=== PATIENT | male | born 2000 | race Caucasian/White ===

== ENCOUNTER 2023-10-14 12:19 | Emergency (ER) | payer OTHER ==
[2023-10-14 12:35] VITALS: BP 106/64; PULSE 60; RESP 17; TEMP 97.7; BMI 20.3
[2023-10-14] MEDS ORDERED: LIDOCAINE 4% PATCH TP ONE (14:35)
[2023-10-14] MEDS ORDERED: KETOROLAC TROMETHAMINE 30 MG/1 ML VIAL ONE (14:35)
[2023-10-14] MEDS: KETOROLAC TROMETHAMINE 30 MG/1 ML VIAL IM ONE (14:44)
[2023-10-14] MEDS: LIDOCAINE 4% PATCH TP ONE (14:45)
== END 2023-10-14 15:01 | disposition home or self-care (01) ==
LOC: JERFT 12:19
PROC: 3E0233Z Introduction of Anti-inflammatory into Muscle, Percutaneous Approach (ICD-10-PCS; principal; 2023-10-14)
DX: S20.212A Contusion of left front wall of thorax, initial encounter (principal); W21.19XA Struck by other bat, racquet or club, initial encounter
CPT/HCPCS: 71046-TC-FY; 99284-25

== ENCOUNTER 2023-12-27 19:23 | Emergency (ER) | payer OTHER ==
[2023-12-27 19:28] VITALS: RESP 18; TEMP 99.2; BMI 21.1
[2023-12-27 21:02] LABS: BASO % 0.3 % (0-2.0); EOS % 1.1 % (0-4.5); HEMATOCRIT 35.5 % (35.4-49); HEMOGLOBIN 12.2 GM/dL (11.7-16.9); LYMPH % 18.6 % (8-40); MCH 29.7 pg (25.7-33.7); MCHC 34.5 g/dl (32.0-35.9); MEAN CELL VOLUME 86.2 fl (80-96); PLATELET COUNT 161 10^3/uL (134-434); RBC 4.12 M/mm3 (4.00-5.60); RDW 13.6 % (11.9-15.9); WHITE BLOOD COUNT 7.9 K/mm3 (4.0-10.0)
[2023-12-27] MEDS: SODIUM CHLORIDE 0.9% 500 ML INFUS.BAG IV ONE (21:08)
[2023-12-27 21:29] LABS: POTASSIUM 3.5 mmol/L (3.5-5.1)
[2023-12-27 21:31] LABS: ALBUMIN 3.6 g/dl (3.4-5.0); CALCIUM 8.5 mg/dL (8.5-10.1)
[2023-12-27 21:36] LABS: BILIRUBIN,TOTAL 0.4 mg/dL (0.2-1); TOT PROT 6.3 g/dl (6.4-8.2)
[2023-12-27 22:12] VITALS: BP 130/62; PULSE 92
== END 2023-12-27 22:22 | disposition home or self-care (01) ==
LOC: JER 19:23
DX: S40.012A Contusion of left shoulder, initial encounter (principal); R42 Dizziness and giddiness; V43.12XA Car passenger injured in collision with other type car in nontraffic accident, initial encounter; Z20.822 Contact with and (suspected) exposure to COVID-19
CPT/HCPCS: 36415; 70450-TC; 80053; 84484; 85025; 87635; 93005; 93010; 99284-25